=== PATIENT | male | born 1985 | race African-American/Black ===

== ENCOUNTER 2018-01-08 00:51 | Inpatient (IN) | payer BC ==
[2018-01-08 05:22] LABS: APPEARANCE,URINE CLEAR; BILIRUBIN,URINE NEGATIVE (NEGATIVE); COLOR,URINE YELLOW; GLUCOSE, URINE NEGATIVE (NEGATIVE); KETONES,URINE NEGATIVE (NEGATIVE); LEUKOCYTE ESTERASE,URINE NEGATIVE (NEGATIVE); NITRITE,URINE NEGATIVE (NEGATIVE); PROTEIN,URINE NEGATIVE (NEGATIVE); URINE SPECIFIC GRAVITY 1.006; UROBILINOGEN,URINE NEGATIVE mg/dL (<2.0)
--- NOTE | 2018-01-08 05:22 | ER Document Report ---
ED Medical Screen (RME) - General Chief Complaint: Abdominal Pain Stated Complaint: ABDOMINAL CRAMPING Time Seen by Provider: 01/08/18 04:40 Mode of Arrival: Ambulatory Information source: Patient Notes: Patient is a 32-year-old male who presents with upper abdominal/epigastric pain. Patient reports that the pain started yesterday attending him. Patient describes the pain as a tightness. Patient denies any shortness of breath however he does report that the pain increases in his abdomen when he takes a deep breath. Patient denies any fever. Patient reports heavy caffeine use as well as alcohol use. Patient also reports that he is a smoker. Patient denies any past medical history, surgical history and denies the use of any daily medications. I have greeted and performed a rapid initial assessment of this patient. A comprehensive ED assessment and evaluation of the patient, analysis of test results and completion of the medical decision making process will be conducted by additional ED providers. Dictation of this chart was performed using voice recognition software; therefore, there may be some unintended grammatical errors. Past Medical History - General Information source: Patient - Social History Cigarette use (# per day): Yes Frequency of alcohol use: Social Drug Abuse: None Lives with: Family Family history: Reviewed & Not Pertinent - Medical History Medical History: Negative Surgical Hx: Negative Review of Systems - Review of Systems Constitutional: No symptoms reported EENT: No symptoms reported Cardiovascular: No symptoms reported Respiratory: No symptoms reported Gastrointestinal: See HPI Genitourinary: No symptoms reported Male Genitourinary: No symptoms reported Musculoskeletal: No symptoms reported Skin: No symptoms reported Hematologic/Lymphatic: No symptoms reported Neurological/Psychological: No symptoms reported Physical Exam - Vital signs Vitals: Temp Pulse Resp BP Pulse Ox 98.3 F 88 17 154/101 H 97 01/08/18 01:05 01/08/18 01:05 01/08/18 01:05 01/08/18 01:05 01/08/18 01:05 - Respiratory Respiratory status: No respiratory distress Breath sounds: Normal - Abdominal Inspection: Obese Distension: No distension Bowel sounds: Normal Tenderness: Tender. No: Guarding, Rebound Organomegaly: No organomegaly Course - Vital Signs Vital signs: Temp Pulse Resp BP Pulse Ox 98.3 F 88 17 165/108 H 97 01/08/18 01:05 01/08/18 01:05 01/08/18 01:05 01/08/18 01:08 01/08/18 01:05 - Laboratory Result Diagrams: 01/08/18 04:52 01/08/18 04:52
[2018-01-08] MEDS ORDERED: SUCRALFATE 1 GM TABLET PO ONE (05:24)
[2018-01-08 05:31] LABS: ABSOLUTE EOSINOPHILS # (AUTO) 0.2 10^3/uL (0.0-0.6); ABSOLUTE MONOCYTES (AUTO) 0.7 10^3/uL (0.1-1.4); ABSOLUTE NEUT (AUTO) 9.9 10^3/uL (1.7-8.2); BASOPHILS % (AUTO) 0.2 % (0-2); EOSINOPHILS % (AUTO) 1.3 % (0-6); HEMATOCRIT 44.3 % (37.9-51.0); HEMOGLOBIN 15.1 g/dL (13.5-17.0); LYMPHOCYTES % (AUTO) 15.6 % (13-45); MEAN CORPUSCULAR HEMOGLOBIN 31.3 pg (27.0-33.4); MEAN CORPUSCULAR HGB CONC 34.1 g/dL (32.0-36.0); MEAN CORPUSCULAR VOLUME 92 fl (80-97); MONOCYTES % (AUTO) 5.6 % (3-13); PLATELET COUNT 370 10^3/uL (150-450); RED BLOOD COUNT 4.83 10^6/uL (4.35-5.55); RED CELL DISTRIBUTION WIDTH 13.4 % (11.5-14.0); SEGMENTED NEUTROPHILS % (AUTO) 77.3 % (42-78); TOTAL CELLS COUNTED % (AUTO) 100 %; WHITE BLOOD COUNT 12.8 10^3/uL (4.0-10.5)
[2018-01-08 05:49] LABS: ALANINE AMINOTRANSFERASE 37 U/L (21-72); ALKALINE PHOSPHATASE 71 U/L (38-126); ANION GAP 12 (5-19); ASPARTATE AMINO TRANSFERASE 23 U/L (17-59); BILIRUBIN,DIRECT 0.4 mg/dL (0.0-0.4); BILIRUBIN,TOTAL 0.6 mg/dL (0.2-1.3); BLOOD UREA NITROGEN 4 mg/dL (7-20); CALCIUM 9.5 mg/dL (8.4-10.2); CARBON DIOXIDE 27 mmol/L (22-30); CHLORIDE 104 mmol/L (98-107); GLUCOSE 100 mg/dL (75-110); LIPASE 71.1 U/L (23-300); POTASSIUM 3.9 mmol/L (3.6-5.0); SODIUM 142.5 mmol/L (137-145); TOTAL PROTEIN 6.9 g/dL (6.3-8.2)
--- NOTE | 2018-01-08 06:45 | ER Document Report ---
ED GI/ <THOMAS ANGLIN - Last Filed: 01/08/18 08:34> - General Mode of Arrival: Ambulatory Information source: Patient <KEVIN ROMERO - Last Filed: 01/09/18 08:09> - General Chief Complaint: Abdominal Pain Stated Complaint: ABDOMINAL CRAMPING Time Seen by Provider: 01/08/18 04:40 Notes: Patient is a 32 year old male with no significant history presents to the emergency department complaining of epigastric abdominal pain onset yesterday around 1015. Patient states after he woke up, he noticed the pain around 20 mins later and describes it as a constant tightness. He states the pain is exacerbated with deep breathing and bending over. He states approximately 6 hours after the onset of the pain he vomited once. He denies any nausea. (KEVIN ROMERO) - Related Data Allergies/Adverse Reactions: No Known Allergies Allergy (Unverified 01/08/18 09:05) Past Medical History - General Information source: Patient - Social History Smoking Status: Current Every Day Smoker Cigarette use (# per day): Yes - Half a pack a day Frequency of alcohol use: Heavy - states 36 beers a week, drinks majority on weekends. Drug Abuse: None Lives with: Family Family History: Reviewed & Not Pertinent - Medical History Medical History: Negative Surgical Hx: Negative <KEVIN ROMERO - Last Filed: 01/09/18 08:09> Review of Systems - Review of Systems Constitutional: No symptoms reported EENT: No symptoms reported Cardiovascular: No symptoms reported Respiratory: No symptoms reported Gastrointestinal: See HPI, Abdominal pain, Vomiting. denies: Nausea Genitourinary: No symptoms reported Male Genitourinary: No symptoms reported Musculoskeletal: No symptoms reported Skin: No symptoms reported Hematologic/Lymphatic: No symptoms reported Neurological/Psychological: No symptoms reported -: Yes All other systems reviewed and negative <KEVIN ROMERO - Last Filed: 01/09/18 08:09> Physical Exam - General General appearance: Appears well, Alert In distress: None - HEENT Head: Normocephalic, Atraumatic Eyes: Normal Conjunctiva: Normal Extraocular movements intact: Yes Pupils: PERRL Mucous membranes: Normal Neck: Normal - Respiratory Respiratory status: No respiratory distress Chest status: Nontender Breath sounds: Normal Chest palpation: Normal - Cardiovascular Rhythm: Regular Heart sounds: Normal auscultation Murmur: No Friction rub: No Gallop: None auscultated - Abdominal Inspection: Normal, Obese Distension: No distension Bowel sounds: Normal Tenderness: Nontender - epigastric, Tender - RUQ tender to palpation. Organomegaly: No organomegaly - Back Back: Normal - Extremities General upper extremity: Normal ROM General lower extremity: Normal ROM - Neurological Neuro grossly intact: Yes Cognition: Normal Orientation: AAOx4 Jean-Claude Coma Scale Eye Opening: Spontaneous Jean-Claude Coma Scale Verbal: Oriented Jean-Claude Coma Scale Motor: Obeys Commands Jean-Claude Coma Scale Total: 15 Speech: Normal - Psychological Associated symptoms: Normal affect, Normal mood - Skin Skin Temperature: Warm Skin Moisture: Dry Skin Color: Normal <KEVIN ROMERO - Last Filed: 01/09/18 08:09> - Vital signs Vitals: Temp Pulse Resp BP Pulse Ox 98.3 F 88 17 154/101 H 97 01/08/18 01:05 01/08/18 01:05 01/08/18 01:05 01/08/18 01:05 01/08/18 01:05 Course - Laboratory Result Diagrams: 01/08/18 04:52 01/08/18 04:52 - EKG Interpretation by [facility] EKG shows normal: Sinus rhythm, [place], Intervals, QRS Complexes, ST-T Waves Rate: Normal - 83 Rhythm: NSR - Consults Dr. Pelaez Time consulted: 07:20 Consulted provider: will come to ER <THOMAS ANGLIN - Last Filed: 01/08/18 08:34> - Laboratory Result Diagrams: 01/09/18 06:40 01/09/18 06:40 <KEVIN ROMERO - Last Filed: 01/09/18 08:09> - Vital Signs Vital signs: Temp Pulse Resp BP Pulse Ox 98.7 F 100 18 152/95 H 92 01/09/18 07:20 01/09/18 07:20 01/09/18 04:11 01/09/18 07:20 01/09/18 07:20 - Laboratory Laboratory results interpreted by or: 01/08/18 01/08/18 01/08/18 04:52 04:52 04:56 WBC 12.8 H Absolute Neutrophils 9.9 H BUN 4 L Urine Blood SMALL H Discharge - Discharge Admitting Provider: Surgicalist Unit Admitted: OR <THOMAS ANGLIN - Last Filed: 01/08/18 08:34> <KEVIN ROMERO - Last Filed: 01/09/18 08:09> - Discharge Clinical Impression: Cholelithiasis and acute cholecystitis without obstruction High blood pressure Qualifiers: Hypertension type: essential hypertension Qualified Code(s): I10 - Essential ( primary) hypertension Condition: Stable Disposition: ADMITTED INPATIENT Scribe Attestation: 01/08/18 07:25 I personally performed the services described in the documentation, reviewed and edited the documentation which was dictated to the scribe in my presence, and it accurately records my words and actions. (THOMAS ANGLIN) Scribe Documentation - Scribe Written by Dwaine:: Dwaine Ho, 01/08/2018 06:53 acting as scribe for :: Nafisa <KEVIN ROMERO - Last Filed: 01/09/18 08:09>
--- NOTE | 2018-01-08 07:47 | RADIOLOGY REPORT (SQ) ---
EXAM DESCRIPTION: US ABDOMEN LIMITED COMPLETED DATE/TME: 01/08/2018 06:37 CLINICAL HISTORY: RUQ abd pain COMPARISON: None. TECHNIQUE: Real-time sonographic images of the right upper abdomen were obtained using a curved multihertz transducer. FINDINGS: Pancreas: The visualized portions of the pancreas are unremarkable. Vascular: The visualized portions of the aorta and IVC are unremarkable. Liver: The liver has normal contour and increased echogenicity. Hepatopedal flow in the portal vein confirmed with color and spectral Doppler imaging.. The common bile duct measures 0.2 cm. Gallbladder: Mobile echogenic structure with posterior shadowing in the gallbladder lumen compatible with a gallstone. Negative reported sonographic Wilder sign. Small amount of pericholecystic fluid and mild gallbladder wall thickening. Right Kidney: The right kidney measures 11.5 cm in length. No hydronephrosis, solid renal mass, or shadowing calculi. IMPRESSION: 1. Cholelithiasis with gallbladder wall thickening and pericholecystic fluid. These findings could be seen with acute cholecystitis. 2. Hepatic steatosis.
[2018-01-08] MEDS ORDERED: NORMAL SALINE 1000 ML 2,000 ML IV PRN (08:22)
[2018-01-08] MEDS ORDERED: METOCLOPRAMIDE HCL INJ/PF 10 MG/2 ML SDV ONE (08:22)
[2018-01-08] MEDS ORDERED: ONDANSETRON HCL INJ/PF 4 MG/2 ML SDV ONE (08:22)
[2018-01-08] MEDS ORDERED: CEFOXITIN INJ 1 GM VIAL IV ONE (08:22)
[2018-01-08] MEDS ORDERED: SUCCINYLCHOLINE CHLORIDE INJ 200 MG/10 ML VIAL ONE (08:22)
[2018-01-08] MEDS ORDERED: GLYCOPYRROLATE 1 MG/5 ML SYRINGE ONE (08:22)
[2018-01-08] MEDS ORDERED: ROCURONIUM BROMIDE INJ 50 MG/5 ML VIAL IV ONE (08:22)
[2018-01-08] MEDS ORDERED: DEXAMETHASONE SOD PHOSPHATE INJ 4 MG/1 ML VIAL ONE (08:22)
[2018-01-08] MEDS ORDERED: KETOROLAC TROMETHAMINE 60 MG/2 ML SDV ONE (08:22)
[2018-01-08] MEDS ORDERED: LIDOCAINE 2% INJ-PF (20 MG/ML) 2 ML AMPUL ONE (08:22)
[2018-01-08] MEDS ORDERED: NEOSTIGMINE METHYLSULFATE 10 MG/10 ML VIAL ONE (08:22)
--- NOTE | 2018-01-08 08:23 | PDOC H&P ---
History of Present Illness Admission Date/PCP: 01/08/18 Patient complains of: RUQ pain History of Present Illness: CHI ROMEO is a 32 year old male, onese, with HTN c/o RUQ pain x 12 hours. An US of the abdomen has been done revealing cholelithiasis with cholecystitis. Nausea, no vomiting. Social History Lives with: Family Smoking Status: Current Every Day Smoker Family History Family History: n/a Parental Family History Reviewed: No Children Family History Reviewed: No Sibling(s) Family History Reviewed.: No Physical Exam Vital Signs: Temp Pulse Resp BP Pulse Ox 98.3 F 88 17 165/108 H 97 01/08/18 01:05 01/08/18 01:05 01/08/18 01:05 01/08/18 01:08 01/08/18 01:05 Intake & Output 01/07/18 01/08/18 01/09/18 06:59 06:59 06:59 Weight 148.7 kg General appearance: PRESENT: no acute distress, cooperative Head exam: PRESENT: atraumatic Mouth exam: PRESENT: dry mucosa Respiratory exam: PRESENT: clear to auscultation janeth Cardiovascular exam: PRESENT: RRR GI/Abdominal exam: PRESENT: normal bowel sounds - right upper quadrant, tenderness Rectal exam: PRESENT: deferred Neurological exam: PRESENT: alert, altered Skin exam: PRESENT: warm Results Laboratory Results: 01/08/18 04:52 01/08/18 04:52 01/08/18 01/08/18 01/08/18 04:52 04:52 04:56 WBC 12.8 H RBC 4.83 Hgb 15.1 Hct 44.3 MCV 92 MCH 31.3 MCHC 34.1 RDW 13.4 Plt Count 370 Seg Neutrophils % 77.3 Lymphocytes % 15.6 Monocytes % 5.6 Eosinophils % 1.3 Basophils % 0.2 Absolute Neutrophils 9.9 H Absolute Lymphocytes 2.0 Absolute Monocytes 0.7 Absolute Eosinophils 0.2 Absolute Basophils 0.0 Sodium 142.5 Potassium 3.9 Chloride 104 Carbon Dioxide 27 Anion Gap 12 BUN 4 L Creatinine 0.67 Est GFR ( Amer) > 60 Est GFR (Non-Af Amer) > 60 Glucose 100 Calcium 9.5 Total Bilirubin 0.6 AST 23 ALT 37 Alkaline Phosphatase 71 Total Protein 6.9 Albumin 4.0 Lipase 71.1 Urine Color YELLOW Urine Appearance CLEAR Urine pH 6.0 Ur Specific [place] 1.006 Urine Protein NEGATIVE Urine Glucose (UA) NEGATIVE Urine Ketones NEGATIVE Urine Blood SMALL H Urine Nitrite NEGATIVE Ur Leukocyte Esterase NEGATIVE Urine RBC (Auto) 1 Impressions: Abdomen Ultrasound 01/08/18 06:37 IMPRESSION: 1. Cholelithiasis with gallbladder wall thickening and pericholecystic fluid. These findings could be seen with acute cholecystitis. 2. Hepatic steatosis. Assessment & Plan - Diagnosis (1) Cholelithiasis and acute cholecystitis without obstruction Is this a current diagnosis for this admission?: Yes - Plan Summary Plan Summary: A/ RUQ abdominal pain Leukocytosis Normal LFT US GB significant for cholelithiasis and cholecystitis HTN P/ Aggressive preop IV hydration (2 L NS), then NS 150 mL/hr Mefoxin 2 gr IVPB Plan lap jesenia, possible opne, possible cholangiogram today. Procedure, risks, benefits, complications including bleeding from the liver and or injury of the bile ducts which might require transfer to a tertiary center for open repair have been discussed with the patient; his questions were answered and he decided to proceed
--- NOTE | 2018-01-08 08:31 | EKG REPORT ---
SEVERITY:- BORDERLINE ECG - SINUS RHYTHM NONSPECIFIC ST-T CHANGES- INFERIOR LEADS : Confirmed by: Shiraz Fox MD 08-Jan-2018 08:31:07
[2018-01-08] MEDS ORDERED: BUPIVACAINE HCL 0.5%-EPI 1:200000 INJ/PF 30 ML VIAL ONE (09:20)
[2018-01-08] MEDS ORDERED: FENTANYL CITRATE INJ/PF 250 MCG/5 ML AMPULE ONE (09:47)
[2018-01-08] MEDS ORDERED: PROPOFOL INJ 200 MG/20 ML VIAL IV ONE (09:48)
[2018-01-08] MEDS ORDERED: DEXMEDETOMIDINE INJ 80 MCG/20 ML VIAL IV ONE (09:48)
[2018-01-08] MEDS ORDERED: EPHEDRINE SULFATE INJ 50 MG/1 ML AMPULE ONE (09:48)
[2018-01-08] MEDS ORDERED: MIDAZOLAM 2 MG/2 ML INJ ONE (09:48)
[2018-01-08] MEDS ORDERED: ACETAMINOPHEN 1,000 MG/100 ML RTUPB IV ONE (09:48)
[2018-01-08] MEDS ORDERED: FENTANYL CITRATE INJ/PF 100 MCG/2 ML AMPUL IV PRN ×3 (11:50)
[2018-01-08] MEDS ORDERED: MEPERIDINE HCL/PF INJ 25 MG/1 ML DISP.SYRIN IV PRN (11:50)
[2018-01-08] MEDS ORDERED: PROMETHAZINE HCL INJ 25 MG/1 ML VIAL IV PRN ×2 (11:50)
[2018-01-08] MEDS ORDERED: ONDANSETRON HCL INJ/PF 4 MG/2 ML SDV IV PRN ×2 (11:50→13:46)
[2018-01-08] MEDS ORDERED: DIPHENHYDRAMINE HCL 50 MG/ML VIAL IV PRN (11:50)
--- NOTE | 2018-01-08 12:57 | Operative Report ---
Nonrecallable Operative Report DATE OF SURGERY: 01/08/18 PREOPERATIVE DIAGNOSIS: acute cholecystitis, cholelithiasis POSTOPERATIVE DIAGNOSIS: same OPERATION: laparoscopic cholecystectomy. epigastric wound exploration SURGEON: TREVOR MAURICIO 1ST TREE TRIMMER: KAMILLA MORRISSEY TISSUE REMOVED OR ALTERED: gallbladder, stones COMPLICATIONS: none ESTIMATED BLOOD LOSS: 70mL INTRAOPERATIVE FINDINGS: inflamed gallbladder filled with stones PROCEDURE: see dictation
[2018-01-08] MEDS: HYDROMORPHONE HCL INJ/PF 2 MG/ML AMPULE IV PRN ×3 (13:20→20:01)
[2018-01-08] MEDS ORDERED: HYDROMORPHONE HCL INJ/PF 2 MG/ML AMPULE ONE (13:47)
[2018-01-08] MEDS: CEFOXITIN SODIUM 2 GM in DEXTROSE 5%-WATER 100 ML IV SCH ×2 (17:50→23:41)
[2018-01-08 18:21] LABS: ABSOLUTE BASOPHILS # (AUTO) 0.1 10^3/uL (0.0-0.2); ABSOLUTE LYMPHOCYTES (AUTO) 1.1 10^3/uL (0.5-4.7); ABSOLUTE MONOCYTES (AUTO) 0.8 10^3/uL (0.1-1.4); ABSOLUTE NEUT (AUTO) 17.2 10^3/uL (1.7-8.2); BASOPHILS % (AUTO) 0.3 % (0-2); EOSINOPHILS % (AUTO) 0.1 % (0-6); HEMATOCRIT 45.5 % (37.9-51.0); HEMOGLOBIN 14.6 g/dL (13.5-17.0); MEAN CORPUSCULAR VOLUME 94 fl (80-97); RED BLOOD COUNT 4.85 10^6/uL (4.35-5.55); RED CELL DISTRIBUTION WIDTH 13.3 % (11.5-14.0); SEGMENTED NEUTROPHILS % (AUTO) 89.6 % (42-78); TOTAL CELLS COUNTED % (AUTO) 100 %; WHITE BLOOD COUNT 19.1 10^3/uL (4.0-10.5)
[2018-01-08 18:29] LABS: INTERNATIONAL RATION (INR) 0.93; PROTHROMBIN TIME 12.9 SEC (11.4-15.4)
[2018-01-08 18:30] LABS: PARTIAL THROMBOPLASTIN TIME 34.2 SEC (23.5-35.8)
[2018-01-08 18:38] LABS: PLATELET COUNT 276 10^3/uL (150-450)
[2018-01-08] MEDS: FAMOTIDINE INJ/PF 20 MG/2 ML SDV IV SCH (22:50)
[2018-01-08] MEDS: NORMAL SALINE 1000 ML 1,000 ML IV PRN (23:41)
[2018-01-09] MEDS: METOPROLOL TARTRATE PF/INJ 5 MG/5 ML SDV IV SCH ×3 (00:18→12:41)
[2018-01-09] MEDS: HYDROMORPHONE HCL INJ/PF 2 MG/ML AMPULE IV PRN ×2 (04:28→08:04)
--- NOTE | 2018-01-09 04:55 | OPERATIVE REPORT E ---
Operative Report NAME: CHI ROMEO : 1985 AGE: 32Y DATE OF SURGERY:01/08/2018 ROOM: 213 PREOPERATIVE DIAGNOSIS: ACUTE CHOLECYSTITIS AND CHOLELITHIASIS. POSTOPERATIVE DIAGNOSIS: ACUTE CHOLECYSTITIS AND CHOLELITHIASIS. OPERATION: Laparoscopic cholecystectomy and wound exploration. SURGEON: TREVOR MAURICIO M.D. MILITARY LOGISTICS SPECIALIST: Paulette Palacios. COMPLICATIONS: None. ANESTHESIA: General plus 40 mL 1% lidocaine with epinephrine. ESTIMATED BLOOD LOSS: Minimal, less than 70 mL. INDICATION AND FINDINGS: A morbidly obese 32-year-old male, who presented to the emergency room this morning with complaint of right upper quadrant pain and intense nausea, found to have acute cholecystitis and cholelithiasis. The decision was made to take the patient to surgery today following IV sedation and IV antibiotics and perform laparoscopic cholecystectomy, possible open, possible cholangiogram. The procedure risks, benefits, and complications explained to the patient, including possibility of injury to common bile duct or liver, which may require transfer to a tertiary center. DESCRIPTION OF PROCEDURE: The patient was brought to the operating room. The patient was placed in the supine position. General anesthesia was induced by endotracheal intubation. The abdomen was prepped and draped in the usual fashion. Four ports were placed; one 5 mm above the umbilicus, pneumoperitoneum was established and then two 5 mm ports were placed in the right upper quadrant of the abdomen and a 12 mm port was placed in the epigastrium. The patient was then placed in a reverse Trendelenburg position with the right side elevated. The gallbladder was thickened and a needle was inserted into the gallbladder and about 40 mL of fluid were aspirated. The gallbladder was then grasped at the level of the fundus, elevated, retroflexed. The neck was then grasped and pulled anterior toward the patient's right. The gallbladder was found to be very thick and swollen and edematous, difficult to expose. The critical view of safety was obtained by dividing the peritoneal attachments of the gallbladder medially and laterally to the cystic duct and cystic neck followed by complete dissection of the cystic duct. The cystic duct was found to be very dilated because of the presence of stones. Once the critical view of safety was obtained, a laparoscopic stapler was then used to divide the gallbladder at the level of the neck and most of the stones were then taken together with the gallbladder. After this was accomplished, the gallbladder was then dissected off the bed and extracted from the peritoneal cavity with an EndoBag. The gallbladder neck was then examined and found to be filled with stone. The neck was then opened with a hook cautery and a large stone which measured about 2 cm in diameter was extracted. After this was accomplished, the stump was amputated with an endoscopic stapler and the staple line was found to be intact. The gallbladder neck stump was then removed from the peritoneal cavity through the epigastric ports; however, the specimen remained incorporated between the soft tissue layers. At this point, the epigastric skin incision was enlarged together with the fascial incision so that a wound exploration of the epigastrium could be performed. The specimen was identified in between the anterior sheath and rectus muscle and removed in toto. The anterior rectus sheath was closed with interrupted [id number] 0 Vicryl sutures. Skin was then irrigated, closed with tapan. A 10 mm. flat KATIE drain was then placed under the liver, extracted through the right upper quadrant port site and secured to the skin with a 3-0 nylon suture. The skin incisions were closed with 4-0 subcuticular suture with Dermabond and a pressure dressing applied. The patient was then extubated, transferred to the recovery room in satisfactory condition. During the procedure, about 40 mL of 1% lidocaine were used to infiltrate all wounds. DICTATING PHYSICIAN: TREVOR MAURICIO M.D. [id number] PHY#: [id number] ID: [id number] JOB#: [id number] ACCT: [id number] cc:TREVOR MAURICIO M.D. > MTDD
[2018-01-09] MEDS: CEFOXITIN SODIUM 2 GM in DEXTROSE 5%-WATER 100 ML IV SCH ×3 (05:09→17:12)
[2018-01-09 06:54] LABS: HEMATOCRIT 41.5 % (37.9-51.0); HEMOGLOBIN 14.1 g/dL (13.5-17.0); MEAN CORPUSCULAR HEMOGLOBIN 31.4 pg (27.0-33.4); MEAN CORPUSCULAR VOLUME 92 fl (80-97); PLATELET COUNT 310 10^3/uL (150-450); RED BLOOD COUNT 4.49 10^6/uL (4.35-5.55); RED CELL DISTRIBUTION WIDTH 13.3 % (11.5-14.0); WHITE BLOOD COUNT 13.9 10^3/uL (4.0-10.5)
[2018-01-09 07:09] LABS: ALANINE AMINOTRANSFERASE 40 U/L (21-72); ALBUMIN 3.5 g/dL (3.5-5.0); ALKALINE PHOSPHATASE 59 U/L (38-126); ANION GAP 9 (5-19); ASPARTATE AMINO TRANSFERASE 33 U/L (17-59); BILIRUBIN,DIRECT 0.6 mg/dL (0.0-0.4); BILIRUBIN,TOTAL 1.4 mg/dL (0.2-1.3); BLOOD UREA NITROGEN 5 mg/dL (7-20); CARBON DIOXIDE 26 mmol/L (22-30); CHLORIDE 107 mmol/L (98-107); GLUCOSE 97 mg/dL (75-110); SODIUM 141.8 mmol/L (137-145); TOTAL PROTEIN 6.3 g/dL (6.3-8.2)
[2018-01-09] MEDS: NORMAL SALINE 1000 ML 1,000 ML IV PRN (08:35)
[2018-01-09 08:40] LABS: APPEARANCE,URINE CLEAR; BILIRUBIN,URINE NEGATIVE (NEGATIVE); COLOR,URINE YELLOW; GLUCOSE, URINE NEGATIVE (NEGATIVE); KETONES,URINE NEGATIVE (NEGATIVE); LEUKOCYTE ESTERASE,URINE NEGATIVE (NEGATIVE); NITRITE,URINE NEGATIVE (NEGATIVE); PROTEIN,URINE NEGATIVE (NEGATIVE); URINE SPECIFIC GRAVITY 1.019; UROBILINOGEN,URINE NEGATIVE mg/dL (<2.0)
[2018-01-09] MEDS ORDERED: ENOXAPARIN SODIUM INJ 40 MG/0.4 ML DISP.SYRIN SUBCUT SCH (10:00)
[2018-01-09] MEDS ORDERED: AMLODIPINE BESYLATE 5 MG TABLET PO SCH (10:00)
[2018-01-09] MEDS: FAMOTIDINE INJ/PF 20 MG/2 ML SDV IV SCH (11:30)
[2018-01-09] MEDS ORDERED: ACETAMINOPHEN 325 MG TABLET PO PRN (16:14)
[2018-01-09] MEDS ORDERED: NORMAL SALINE 1000 ML 1,000 ML IV PRN (16:15)
[2018-01-09] MEDS ORDERED: NAPROXEN 250 MG TABLET PO PRN (16:15)
--- NOTE | 2018-01-09 16:21 | PDOC PROGRESS REPORT ---
Subjective Progress Note for:: 01/09/18 Subjective:: comfortable but sleepy Reason For Visit: CHOLELITHIASIS WITH ACUTE CHOLECYSTITIS Physical Exam Vital Signs: Temp Pulse Resp BP Pulse Ox 98.8 F 89 15 150/97 H 96 01/09/18 11:52 01/09/18 11:52 01/09/18 11:52 01/09/18 11:52 01/09/18 11:52 Intake & Output 01/08/18 01/09/18 01/10/18 06:59 06:59 06:59 Intake Total 3300 Output Total 1270 Balance 2030 Weight 148 kg General appearance: PRESENT: no acute distress, cooperative, other - slepy but arousable Respiratory exam: PRESENT: clear to auscultation janeth Cardiovascular exam: PRESENT: RRR GI/Abdominal exam: PRESENT: hypoactive bowel sounds, soft, other - obese, all wounds are c/d/i Results Laboratory Results: 01/09/18 06:40 01/09/18 06:40 01/08/18 01/08/18 01/09/18 18:10 18:10 06:40 WBC 19.1 H 13.9 H RBC 4.85 4.49 Hgb 14.6 14.1 Hct 45.5 41.5 MCV 94 92 MCH 30.0 31.4 MCHC 32.0 34.0 RDW 13.3 13.3 Plt Count 276 310 Seg Neutrophils % 89.6 H Lymphocytes % 6.0 L Monocytes % 4.0 Eosinophils % 0.1 Basophils % 0.3 Absolute Neutrophils 17.2 H Absolute Lymphocytes 1.1 Absolute Monocytes 0.8 Absolute Eosinophils 0.0 Absolute Basophils 0.1 Sodium Potassium Chloride Carbon Dioxide Anion Gap BUN Creatinine 0.83 Est GFR ( Amer) > 60 Est GFR (Non-Af Amer) > 60 Glucose Calcium Total Bilirubin AST ALT Alkaline Phosphatase Total Protein Albumin Urine Color Urine Appearance Urine pH Ur Specific [place] Urine Protein Urine Glucose (UA) Urine Ketones Urine Blood Urine Nitrite Ur Leukocyte Esterase Urine WBC (Auto) Urine RBC (Auto) Stool Occult Blood 01/09/18 01/09/18 01/09/18 06:40 07:55 15:45 WBC RBC Hgb Hct MCV MCH MCHC RDW Plt Count Seg Neutrophils % Lymphocytes % Monocytes % Eosinophils % Basophils % Absolute Neutrophils Absolute Lymphocytes Absolute Monocytes Absolute Eosinophils Absolute Basophils Sodium 141.8 Potassium 4.0 Chloride 107 Carbon Dioxide 26 Anion Gap 9 BUN 5 L Creatinine 0.73 Est GFR ( Amer) > 60 Est GFR (Non-Af Amer) > 60 Glucose 97 Calcium 9.0 Total Bilirubin 1.4 H AST 33 ALT 40 Alkaline Phosphatase 59 Total Protein 6.3 Albumin 3.5 Urine Color YELLOW Urine Appearance CLEAR Urine pH 6.0 Ur Specific [place] 1.019 Urine Protein NEGATIVE Urine Glucose (UA) NEGATIVE Urine Ketones NEGATIVE Urine Blood NEGATIVE Urine Nitrite NEGATIVE Ur Leukocyte Esterase NEGATIVE Urine WBC (Auto) 2 Urine RBC (Auto) 3 Stool Occult Blood NEGATIVE Impressions: Abdomen Ultrasound 01/08/18 06:37 IMPRESSION: 1. Cholelithiasis with gallbladder wall thickening and pericholecystic fluid. These findings could be seen with acute cholecystitis. 2. Hepatic steatosis. Assessment & Plan - Diagnosis (1) Cholelithiasis and acute cholecystitis without obstruction Is this a current diagnosis for this admission?: Yes - Plan Summary Plan Summary: A/ POD #1 after lap jesenia for acute jesenia with stones VSS, AF WBC 12 LFT show slight elevation of total bili (1.4), otherwise normal KATIE output 190, mostly irrigation fluid, serosanguinous P/ Decrease IVF Stop narcotics Oral Tylenol and Aleve oral pepcid Home tomorrow
--- NOTE | 2018-01-09 18:40 | CONSULTATION REPORT E ---
Consultation Report NAME: CHI ROMEO : 1985 AGE: 32Y DATE: 01/09/2018 213 B TO: RIKCEY LAKE NP FROM: Surgicalist Service Requesting Physician CODE STATUS: FULL CODE. PRIMARY CARE PROVIDER: Not established. CONSULTING PROVIDER: Surgicalist. REASON FOR CONSULTATION: Hypertensive management in a patient in postoperative state. HISTORY OF PRESENT ILLNESS: The patient is a 32-year-old -[place] male with no significant past medical history. The patient presented to the emergency department with a chief complaint of abdominal pain. The patient developed a sudden onset of epigastric abdominal pain about a day prior to presentation. The patient stated that he was awakened and the pain gradually increased, described as tightness in the area. The patient's pain was exacerbated by deep breathing, bending over. The patient stated that he vomited about 6 hours after the pain started. The patient felt that the pain was becoming unbearable, and therefore presented to the emergency department. The patient's ultrasound was suggestive of cholelithiasis and acute cholecystitis without obstruction. The patient was seen and evaluated by the surgicalist, and was taken to the OR on 01/08/[address] Pelaez. The patient is currently postoperative. The patient is noted to be hypertensive since presentation. The patient has not had a normal blood pressure. They have all been hypertensive, ranging from the 140s to 160s systolically. The patient denies any history of hypertension; however, he is uncertain of what his blood pressure has been running. The patient, who does have morbid obesity with a BMI of 45%, does most likely have hypertension at baseline that has been undiagnosed. The patient appears to be hypertensive even while being awakened from sleep, and the patient has been referred to the hospitalist for consult. PAST MEDICAL HISTORY: Morbid obesity. PAST SURGICAL HISTORY: Recent cholecystectomy. ALLERGIES: No known drug allergies. HOME MEDICATIONS: None. SOCIAL HISTORY: The patient currently resides at home with his family. The patient is employed at [employer] and is a daily smoker. The patient denies any alcohol use or illicit drug use. FAMILY MEDICAL HISTORY: Positive for hypertension in multiple family members. Both of the patient's parents are healthy. The patient does not have children. The patient does have siblings who are healthy. REVIEW OF SYSTEMS: CONSTITUTIONAL: The patient denies any dizziness, weakness. Does admit to loss of appetite and sensations of fevers, chills. SKIN: The patient denies any diaphoresis, rashes, bruising, itching. HEENT: Denies any visual changes, hearing loss, nasal changes, sore throat. CVS: The patient denies any chest pain. No edema, heart palpitations. RESPIRATORY: Denies any cough, sputum production or hemoptysis. GI: Denies any diarrhea. Admits to nausea. Episode of vomiting, as well as abdominal pain. : Denies any hematuria, pyuria or dysuria. MUSCULOSKELETAL: Denies any acute or chronic joint pains. NEUROLOGICAL: No seizures, tremors, loss of consciousness. HEMATOLOGICAL: Denies any sandra bleeding, easy bruising. ENDOCRINE: Denies any recent weight changes. PSYCHIATRIC: Denies any suicidal or homicidal ideation. PHYSICAL EXAMINATION: GENERAL: On examination, the patient is a well-developed, obese 32-year-old -[place] male, who is awake, alert and oriented to person, place, time and situation. He is verbal, conversational. Does not appear to be in distress. VITAL SIGNS: Temperature is 98, pulse 100, respirations 18, blood pressure 146/87, oxygen saturation 96% on room air. SKIN: Warm. HEENT: The patient's pupils are reactive. There is no evidence of JVP. No periorbital edema. CHEST: Symmetrical, unlabored. ABDOMEN: Obese, postsurgical. EXTREMITIES: No edema. PSYCHIATRIC: Appropriate affect, pleasant mood. DIAGNOSTICS: Lab values are as follows: Hematology obtained on 01/09/2018: WBCs are 13.9, hemoglobin is 14.1, hematocrit is 41.5, platelet count of 310,000. Chemistry obtained on 01/09/2018: Sodium is 141, potassium 4.0, chloride is 107, carbon dioxide 26, BUN 5, creatinine 0.73, glucose 97, calcium is 9.0, bilirubin is 1.4. AST 33, ALT is 40, alk phos 59, total protein 6.3, albumin 3.5. IMPRESSION AND PLAN: 1. Hypertension, most likely benign, essential. The patient most likely is hypertensive at baseline. Will start the patient on a dose of Norvasc for now, and monitor to see how the patient tolerates it. Some of this elevation most likely is due to a pain response; therefore, will attempt not to over-treat, and follow. 2. Morbid obesity. Would encourage weight reduction. 3. Postoperative state. Management as per surgicalist. DISPOSITION: The patient is a FULL CODE. The patient can be discharged by the surgicalist team whenever the patient is ready, from their standpoint. This hypertension should not keep the patient in the hospital. Time spent on this followup, including assessment, plan, physical examination, patient education and review of records, is 35 minutes. DICTATING PHYSICIAN: RICKEY LAKE NP [id number] PHY#: [id number] ID: [id number] JOB#: [id number] ACCT: [id number] cc:RICKEY LAKE NP > MTDD
[2018-01-09] MEDS: FAMOTIDINE 20 MG TABLET PO SCH (22:39)
[2018-01-10] MEDS: CEFOXITIN SODIUM 2 GM in DEXTROSE 5%-WATER 100 ML IV SCH ×2 (00:36→06:13)
[2018-01-10] MEDS ORDERED: METOPROLOL TARTRATE 50 MG TABLET PO ONE (04:00)
[2018-01-10] MEDS ORDERED: AMLODIPINE BESYLATE 5 MG TABLET PO SCH (08:23)
[2018-01-10 08:47] LABS: ABSOLUTE BASOPHILS # (AUTO) 0.1 10^3/uL (0.0-0.2); ABSOLUTE EOSINOPHILS # (AUTO) 0.2 10^3/uL (0.0-0.6); ABSOLUTE LYMPHOCYTES (AUTO) 1.4 10^3/uL (0.5-4.7); ABSOLUTE MONOCYTES (AUTO) 0.9 10^3/uL (0.1-1.4); ABSOLUTE NEUT (AUTO) 9.5 10^3/uL (1.7-8.2); BASOPHILS % (AUTO) 0.5 % (0-2); EOSINOPHILS % (AUTO) 1.5 % (0-6); HEMATOCRIT 40.4 % (37.9-51.0); HEMOGLOBIN 13.8 g/dL (13.5-17.0); LYMPHOCYTES % (AUTO) 11.4 % (13-45); MEAN CORPUSCULAR HEMOGLOBIN 31.4 pg (27.0-33.4); MEAN CORPUSCULAR VOLUME 92 fl (80-97); MONOCYTES % (AUTO) 7.8 % (3-13); PLATELET COUNT 331 10^3/uL (150-450); RED BLOOD COUNT 4.38 10^6/uL (4.35-5.55); RED CELL DISTRIBUTION WIDTH 13.1 % (11.5-14.0); SEGMENTED NEUTROPHILS % (AUTO) 78.8 % (42-78); TOTAL CELLS COUNTED % (AUTO) 100 %; WHITE BLOOD COUNT 12.1 10^3/uL (4.0-10.5)
[2018-01-10 09:00] LABS: ALANINE AMINOTRANSFERASE 41 U/L (21-72); ALBUMIN 3.6 g/dL (3.5-5.0); ALKALINE PHOSPHATASE 66 U/L (38-126); ANION GAP 11 (5-19); ASPARTATE AMINO TRANSFERASE 22 U/L (17-59); BILIRUBIN,DIRECT 0.4 mg/dL (0.0-0.4); BILIRUBIN,TOTAL 1.2 mg/dL (0.2-1.3); BLOOD UREA NITROGEN 7 mg/dL (7-20); CALCIUM 9.3 mg/dL (8.4-10.2); CARBON DIOXIDE 27 mmol/L (22-30); CHLORIDE 104 mmol/L (98-107); GLUCOSE 93 mg/dL (75-110); POTASSIUM 3.7 mmol/L (3.6-5.0); SODIUM 141.5 mmol/L (137-145); TOTAL PROTEIN 6.4 g/dL (6.3-8.2)
--- NOTE | 2018-01-10 09:17 | PDOC PROGRESS REPORT ---
Subjective Progress Note for:: 01/10/18 Subjective:: Patient is seen resting in bed. His sister is at the bedside. He denies any chest pain, shortness of breath or dyspnea. He denies any nausea or vomiting. He is having intermittent abdominal pain relieved by pain medication. He states he is passing gas. He denies any significant arthralgias or myalgias. Remaining review of systems are negative. Reason For Visit: CHOLELITHIASIS WITH ACUTE CHOLECYSTITIS Physical Exam Vital Signs: Temp Pulse Resp BP Pulse Ox 98.7 F 108 H 20 138/92 H 95 01/10/18 03:19 01/10/18 03:31 01/10/18 03:19 01/10/18 06:10 01/10/18 03:19 Intake & Output 01/09/18 01/10/18 01/11/18 06:59 06:59 06:59 Intake Total 3300 1020 Output Total 1270 20 12 Balance 2030 1000 -12 Weight 146.9 kg General appearance: PRESENT: no acute distress, morbidly obese, well-developed, well-nourished Head exam: PRESENT: atraumatic, normocephalic Eye exam: PRESENT: conjunctiva pink, EOMI, PERRLA. ABSENT: scleral icterus Ear exam: PRESENT: normal external ear exam Mouth exam: PRESENT: moist, tongue midline Neck exam: ABSENT: carotid bruit, JVD, lymphadenopathy, thyromegaly Respiratory exam: PRESENT: clear to auscultation janeth. ABSENT: rales, rhonchi, wheezes Cardiovascular exam: PRESENT: RRR. ABSENT: diastolic murmur, rubs, systolic murmur Pulses: PRESENT: normal dorsalis pedis pul Vascular exam: PRESENT: normal capillary refill GI/Abdominal exam: PRESENT: hyperactive bowel sounds, soft, tenderness - Incision site Rectal exam: PRESENT: deferred Extremities exam: PRESENT: full ROM. ABSENT: calf tenderness, clubbing, pedal edema Musculoskeletal exam: PRESENT: ambulatory, full ROM Neurological exam: PRESENT: alert, awake, oriented to person, oriented to place , oriented to time, oriented to situation, CN II-XII grossly intact. ABSENT: motor sensory deficit Psychiatric exam: PRESENT: appropriate affect, normal mood. ABSENT: homicidal ideation, suicidal ideation Skin exam: PRESENT: dry, intact, warm. ABSENT: cyanosis, rash Results Laboratory Results: 01/10/18 08:31 01/10/18 08:31 18 18 01/10/18 15:45 08:31 08:31 WBC 12.1 H RBC 4.38 Hgb 13.8 Hct 40.4 MCV 92 MCH 31.4 MCHC 34.0 RDW 13.1 Plt Count 331 Seg Neutrophils % 78.8 H Lymphocytes % 11.4 L Monocytes % 7.8 Eosinophils % 1.5 Basophils % 0.5 Absolute Neutrophils 9.5 H Absolute Lymphocytes 1.4 Absolute Monocytes 0.9 Absolute Eosinophils 0.2 Absolute Basophils 0.1 Sodium 141.5 Potassium 3.7 Chloride 104 Carbon Dioxide 27 Anion Gap 11 BUN 7 Creatinine 0.84 Est GFR ( Amer) > 60 Est GFR (Non-Af Amer) > 60 Glucose 93 Calcium 9.3 Total Bilirubin 1.2 AST 22 ALT 41 Alkaline Phosphatase 66 Total Protein 6.4 Albumin 3.6 Stool Occult Blood NEGATIVE Impressions: Abdomen Ultrasound 01/08/18 06:37 IMPRESSION: 1. Cholelithiasis with gallbladder wall thickening and pericholecystic fluid. These findings could be seen with acute cholecystitis. 2. Hepatic steatosis. Assessment & Plan - Diagnosis (1) Cholelithiasis and acute cholecystitis without obstruction Is this a current diagnosis for this admission?: Yes Plan: Management per surgery. (2) Hypertension Qualifiers: Hypertension type: essential hypertension Qualified Code(s): I10 - Essential (primary) hypertension Is this a current diagnosis for this admission?: Yes Plan: Will increase Norvasc to 10 mg daily. Discontinue metoprolol due to side effects and his young age reinforced he needs to follow-up with primary care provider. His sister is at bedside she is a nurse and she will make sure he does so. Discussed watching salt and processed food intake as well (3) Morbid obesity with BMI of 45.0-49.9, adult Is this a current diagnosis for this admission?: Yes Plan: Reinforced need for weight loss. Discussed portion control, reducing soda and snacks - Time Time Spent with patient: 25-34 minutes Total Critical Time (Minutes): 15 Medications reviewed and adjusted accordingly: Yes Anticipated discharge: Home
--- NOTE | 2018-01-10 09:23 | PDOC PROGRESS REPORT ---
Subjective Progress Note for:: 01/10/18 Subjective:: comfortable, tolerating po well Reason For Visit: CHOLELITHIASIS WITH ACUTE CHOLECYSTITIS Physical Exam Vital Signs: Temp Pulse Resp BP Pulse Ox 98.6 F 86 18 130/94 H 96 01/10/18 08:56 01/10/18 08:56 01/10/18 08:56 01/10/18 08:56 01/10/18 08:56 Intake & Output 01/09/18 01/10/18 01/11/18 06:59 06:59 06:59 Intake Total 3300 1020 Output Total 1270 20 12 Balance 2029 1000 -12 Weight 146.9 kg General appearance: PRESENT: no acute distress, cooperative Respiratory exam: PRESENT: clear to auscultation janeth Cardiovascular exam: PRESENT: RRR GI/Abdominal exam: PRESENT: soft, other - all incisions are c/d/i; KATIE drain in RUQ with serosanginous fluid Results Laboratory Results: 01/10/18 08:31 01/10/18 08:31 01/09/18 01/10/18 01/10/18 15:45 08:31 08:31 WBC 12.1 H RBC 4.38 Hgb 13.8 Hct 40.4 MCV 92 MCH 31.4 MCHC 34.0 RDW 13.1 Plt Count 331 Seg Neutrophils % 78.8 H Lymphocytes % 11.4 L Monocytes % 7.8 Eosinophils % 1.5 Basophils % 0.5 Absolute Neutrophils 9.5 H Absolute Lymphocytes 1.4 Absolute Monocytes 0.9 Absolute Eosinophils 0.2 Absolute Basophils 0.1 Sodium 141.5 Potassium 3.7 Chloride 104 Carbon Dioxide 27 Anion Gap 11 BUN 7 Creatinine 0.84 Est GFR ( Amer) > 60 Est GFR (Non-Af Amer) > 60 Glucose 93 Calcium 9.3 Total Bilirubin 1.2 AST 22 ALT 41 Alkaline Phosphatase 66 Total Protein 6.4 Albumin 3.6 Stool Occult Blood NEGATIVE Impressions: Abdomen Ultrasound 01/08/18 06:37 IMPRESSION: 1. Cholelithiasis with gallbladder wall thickening and pericholecystic fluid. These findings could be seen with acute cholecystitis. 2. Hepatic steatosis. Assessment & Plan - Diagnosis (1) Cholelithiasis and acute cholecystitis without obstruction Is this a current diagnosis for this admission?: Yes - Plan Summary Plan Summary: A/ POD#2 after lap jesenia VSS, AF WBC 12 LFT WNL Abdomen soft KATIE output decreased 20 mL P/ Home today F/U Surgery Clinic Dian NOLASCO within 1 week resume all activities Regular diet, low akil (limit to 1500/200 akil day) Sponge bath only until KATIE drain is in place, afterwards patient can shower, bath in 2 weeks after surgery Empty KATIE drain daily, record amount and bring output record to office clinic Tylenol/Aleve as needed for pain Augmentin 875 mg po BID x 7 days Take all other meds
[2018-01-10 09:36] VITALS: BP 138/92
[2018-01-10] MEDS: FAMOTIDINE 20 MG TABLET PO SCH (09:52)
[2018-01-10] MEDS ORDERED: METOPROLOL TARTRATE 50 MG TABLET PO SCH (10:00)
--- NOTE | 2018-01-11 08:40 | DISCHARGE SUMMARY E ---
Discharge Summary NAME: CHI ROMEO : 1985 AGE: 32Y ADMITTED: 01/08/2018 DISCHARGED: 01/10/2018 FINAL DIAGNOSIS: 1. Acute cholecystitis with cholelithiasis. 2. Hypertension. 3. Morbid obesity. PROCEDURE: On 01/08, the patient underwent laparoscopic cholecystectomy. COMPLICATIONS: None. HOSPITAL COURSE: The patient is a 32-year-old male who presents to hospital with right upper quadrant pain. The patient was taken to surgery on the same day, 01/08 and underwent an uneventful laparoscopic cholecystectomy which demonstrated severe acute cholecystitis. The drain was left in place. His postop course was unremarkable. His vital signs remained stable. Blood work was monitored daily. His white blood cell count on the day of discharge was 12. His liver profile was within normal limits. On physical exam, the abdomen was soft. The incision was clean, dry and intact. The patient had a drain, which was draining serosanguineous fluid about 20 mL on the day of discharge. DISCHARGE ORDERS: The patient was discharged on 01/10/18 and was given followup appointment with the Surgical Clinic with Dian Dumont, within a week. He was given instructions to sponge bath only until the drain is in place. The patient was instructed to empty the Regino-Fay drain once a day, to record the output and bring the output record to clinic. Augmentin 875 mg p.o. b.i.d. for 7 days, Tylenol and Aleve as needed for pain. Regular diet limited to about 2000 calories a day. Norvasc 2 mg p.o. daily as prescribed by hospitalist for the patient's hypertension. DICTATING PHYSICIAN: TREVOR MAURICIO M.D. [id number] PHY#: [id number] ID: [id number] JOB#: [id number] ACCT: [id number] cc:La ROMERO M.D. > MTDD
== END 2018-01-10 10:00 | disposition home or self-care (01) | DRG 418 ==
LOC: ER 00:51 → EH 08:48 → 2N 14:50
PROVIDERS: ADMIT Surgery; ATTEND Surgery
PROC: 0FT44ZZ Resection of Gallbladder, Percutaneous Endoscopic Approach (ICD-10-PCS; principal; 2018-01-08 10:00)
DX: K80.00 Calculus of gallbladder with acute cholecystitis without obstruction (principal); Z68.42 Body mass index [BMI] 45.0-49.9, adult; I10 Essential (primary) hypertension; E66.01 Morbid (severe) obesity due to excess calories; F17.210 Nicotine dependence, cigarettes, uncomplicated
CPT/HCPCS: 36415; 76705; 790; 80053; 81001; 82272; 82565; 83690; 85025; 85027; 85610; 85730; 87040; 87070; 87075; 87205; 88304; 93005; 93010; 94799; 99285; J0131; J0330; J0694; J1100; J1170; J1650; J1885; J2250; J2405; J2704; J2765; J3010; J3490; J7030; S0028

== ENCOUNTER 2019-01-20 02:05 | Emergency (ER) | payer BC ==
[2019-01-20] MEDS ORDERED: SUCRALFATE 1 GM TABLET PO ONE (03:22)
[2019-01-20] MEDS ORDERED: FAMOTIDINE 20 MG TABLET PO ONE (03:22)
[2019-01-20] MEDS ORDERED: ONDANSETRON 4 MG TAB.RAPDIS PO ONE (03:22)
--- NOTE | 2019-01-20 03:24 | ER Document Report ---
ED GI/ - General Chief Complaint: Epigastric Pain Stated Complaint: STOMACH PAIN Time Seen by Provider: 01/20/19 03:16 Notes: Patient is a 33-year-old male that comes to the emergency department for chief complaint of epigastric pain. Pain started yesterday morning, then again this morning, he reports nausea intermittently as well. He also started to notice pain with moving in the same area. He denies vomiting, fever/chills, abnormal bowel movements. He has had a cholecystectomy already. He denies any daily medications or diagnosed medical problems otherwise. He states he does smoke, drinks alcohol but not as much as he used to, denies recreational drugs. TRAVEL OUTSIDE OF THE [place] IN LAST 30 DAYS: No - Related Data Allergies/Adverse Reactions: No Known Allergies Allergy (Unverified 01/08/18 09:05) Past Medical History - General Information source: Patient - Social History Smoking Status: Current Every Day Smoker Chew tobacco use (# tins/day): No Smoking Education Provided: Yes - <3 min Frequency of alcohol use: Rare Drug Abuse: None Lives with: Family Family History: Reviewed & Not Pertinent Patient has suicidal ideation: No Patient has homicidal ideation: No - Past Medical History Cardiac Medical History: Reports: Hx Hypertension Renal/ Medical History: Denies: Hx Peritoneal Dialysis Past Surgical History: Reports: Hx Cholecystectomy - Immunizations Immunizations up to date: Yes Hx Diphtheria, Pertussis, Tetanus Vaccination: Yes Review of Systems - Review of Systems Constitutional: No symptoms reported EENT: No symptoms reported Cardiovascular: No symptoms reported Respiratory: No symptoms reported Gastrointestinal: See HPI Genitourinary: No symptoms reported Male Genitourinary: No symptoms reported Musculoskeletal: No symptoms reported Skin: No symptoms reported Hematologic/Lymphatic: No symptoms reported Neurological/Psychological: No symptoms reported Physical Exam - Vital signs Vitals: Temp Pulse Resp BP Pulse Ox 98.5 F 93 20 166/96 H 97 01/20/19 02:18 01/20/19 02:18 01/20/19 02:18 01/20/19 02:18 01/20/19 02:18 - Notes Notes: GENERAL: Alert, interacts well. No acute distress. HEAD: Normocephalic, atraumatic. EYES: Pupils equal, round, and reactive to light. Extraocular movements intact. ENT: Oral mucosa moist, tongue midline. Oropharynx unremarkable. Airway patent. NECK: Full range of motion. Supple. Trachea midline. LUNGS: Clear to auscultation bilaterally, no wheezes, rales, or rhonchi. No respiratory distress. HEART: Regular rate and rhythm. No murmur ABDOMEN: Minimal epigastric tenderness, soft benign abdomen otherwise. non- distended. Bowel sounds present in all 4 quadrants. GENITOURINARY: Deferred EXTREMITIES: Moves all 4 extremities spontaneously. No edema, normal radial and dorsalis pedis pulses bilaterally. No cyanosis. BACK: no cervical, thoracic, lumbar midline tenderness. No saddle anesthesia, normal distal neurovascular exam. Moves all extremities in full range of motion. NEUROLOGICAL: Alert and oriented x3. Normal speech. Cranial nerves II through XII grossly intact. PSYCH: Normal affect, normal mood. SKIN: Warm, dry, normal turgor. No rashes or lesions noted. Course - Re-evaluation Re-evalutation: CBC, chemistry, lipase unremarkable. Patient has had a cholecystectomy. He has mild epigastric tenderness. He has multiple reasons for reflux and upper abdominal inflammation (he smokes, drinks alcohol occasionally, states he recently started taking naproxen, frequently eats spicy food, etc.). Discussed work-up, recommendations, follow-up, and return precautions. Patient states satisfaction agreement with plan. - Vital Signs Vital signs: Temp Pulse Resp BP Pulse Ox 98.0 F 97 18 160/95 H 99 01/20/19 05:20 01/20/19 05:20 01/20/19 05:20 01/20/19 05:20 01/20/19 05:20 - Laboratory Result Diagrams: 01/20/19 04:14 01/20/19 04:14 Laboratory results interpreted by me: 01/20/19 04:14 Glucose 135 H Discharge - Discharge Clinical Impression: Epigastric pain, Nausea Condition: Stable Disposition: HOME, SELF-CARE Additional Instructions: Your symptoms and examination indicate gastritis/esophagitis (inflammation of your upper gastrointestinal tract). Take Phenergan for nausea, take Carafate and Pepcid as prescribed to help treat this, you can take additional Rolaids, Tums, Maalox, etc. if needed. You can take Tylenol for pain. Avoid NSAIDs, alcohol, smoking, caffeine, spicy food. Start with clear fluids, progress to bland diet. Follow-up with primary care for additional evaluation and treatment including possible H. pylori testing. Return if you worsen including uncontrolled vomiting, vomiting blood, black stools, severe pain, fever of 100.4 or greater, or any other concerning or worsening symptoms. Prescriptions: Famotidine [Pepcid 20 mg Tablet] 20 mg PO BID #20 tablet Promethazine HCl [Phenergan 25 mg Tablet] 25 mg PO Q6H PRN #20 tablet PRN Reason: Sucralfate [Carafate 1 gm Tablet] 1 gm PO QID #20 tablet Forms: Return to Work
[2019-01-20 04:37] LABS: ABSOLUTE BASOPHILS # (AUTO) 0.1 10^3/uL (0.0-0.2); ABSOLUTE EOSINOPHILS # (AUTO) 0.3 10^3/uL (0.0-0.6); ABSOLUTE LYMPHOCYTES (AUTO) 2.7 10^3/uL (0.5-4.7); ABSOLUTE MONOCYTES (AUTO) 0.4 10^3/uL (0.1-1.4); ABSOLUTE NEUT (AUTO) 6.2 10^3/uL (1.7-8.2); BASOPHILS % (AUTO) 0.7 % (0-2); HEMATOCRIT 43.3 % (37.9-51.0); HEMOGLOBIN 14.5 g/dL (13.5-17.0); MEAN CORPUSCULAR HEMOGLOBIN 30.4 pg (27.0-33.4); MEAN CORPUSCULAR HGB CONC 33.6 g/dL (32.0-36.0); MEAN CORPUSCULAR VOLUME 91 fl (80-97); MONOCYTES % (AUTO) 4.5 % (3-13); PLATELET COUNT 327 10^3/uL (150-450); RED BLOOD COUNT 4.77 10^6/uL (4.35-5.55); RED CELL DISTRIBUTION WIDTH 13.2 % (11.5-14.0); SEGMENTED NEUTROPHILS % (AUTO) 63.8 % (42-78); TOTAL CELLS COUNTED % (AUTO) 100 %; WHITE BLOOD COUNT 9.7 10^3/uL (4.0-10.5)
[2019-01-20 04:48] LABS: ALANINE AMINOTRANSFERASE 21 U/L (21-72); ALBUMIN 4.1 g/dL (3.5-5.0); ALKALINE PHOSPHATASE 87 U/L (38-126); ANION GAP 9 (5-19); ASPARTATE AMINO TRANSFERASE 19 U/L (17-59); BILIRUBIN,DIRECT 0.3 mg/dL (0.0-0.4); BILIRUBIN,TOTAL 0.3 mg/dL (0.2-1.3); BLOOD UREA NITROGEN 15 mg/dL (7-20); CALCIUM 8.9 mg/dL (8.4-10.2); CARBON DIOXIDE 25 mmol/L (22-30); CHLORIDE 106 mmol/L (98-107); GLUCOSE 135 mg/dL (75-110); LIPASE 110.8 U/L (23-300); POTASSIUM 3.9 mmol/L (3.6-5.0); SODIUM 139.6 mmol/L (137-145); TOTAL PROTEIN 6.8 g/dL (6.3-8.2)
[2019-01-20 05:21] VITALS: BP 160/95
== END 2019-01-20 05:22 | disposition home or self-care (01) ==
LOC: ER 02:05
DX: R10.13 Epigastric pain (principal); R11.0 Nausea; Z90.49 Acquired absence of other specified parts of digestive tract; Z79.899 Other long term (current) drug therapy; F17.200 Nicotine dependence, unspecified, uncomplicated; I10 Essential (primary) hypertension
CPT/HCPCS: 99284; 36415; 83690; 85025; 80053; S0119

== ENCOUNTER 2019-01-24 02:07 | Emergency (ER) | payer BC ==
--- NOTE | 2019-01-24 03:24 | ER Document Report ---
ED General - General Chief Complaint: Other Stated Complaint: ABDOMINAL PAIN Time Seen by Provider: 01/24/19 03:23 Primary Care Provider: [facility] [Provider Group] - Follow up in 3-5 days Notes: Patient is a 33-year-old male that presents to the emergency department for chief complaint of epigastric abdominal pain. Patient was recently seen in the emergency department, for similar symptoms, was treated for gastritis and esophagitis at that time, he was improved, his symptoms were resolved, but he has not been able to fill the prescriptions because he states he does not get paid until this Tuesday, and the pain seemed to get worse today, he did have one episode of vomiting so he came back to the emergency department. Denies noting any blood in the vomit, denies any black or tarry stool. He currently rates his pain as a 4 out of 10 describes as an aching and occasionally sharp sensation in the epigastric region of his abdomen. Denies any any fevers, chills, night sweats, chest pain, shortness of breath or difficulty breathing, denies any dysuria or hematuria. Past Medical History: Hypertension Past Surgical History: Cholecystectomy Social History: Admits to smoking cigarettes, denies alcohol or drug use. Family History: Reviewed and noncontributory for presenting illness Allergies: Reviewed, see documented allergy list. REVIEW OF SYSTEMS: Other than noted above, the 12 point review of systems was reviewed with the patient and were negative, all pertinent findings are included in the HPI. PHYSICAL EXAMINATION: Vital signs reviewed, nursing noted reviewed. GENERAL: Well-appearing, well-nourished and in no acute distress. HEAD: Atraumatic, normocephalic. EYES: Eyes appear normal, extraocular movements intact, sclera anicteric, conjunctiva are normal. ENT: nares patent, oropharynx clear without exudates. Moist mucous membranes. NECK: Normal range of motion, supple without lymphadenopathy LUNGS: Breath sounds clear to auscultation bilaterally and equal. No wheezes rales or rhonchi. HEART: Regular rate and rhythm without murmurs ABDOMEN: Soft, mild epigastric tenderness to palpation, normoactive bowel sounds. No rebound, guarding, or rigidity. No masses appreciated. EXTREMITIES: Nontender, good range of motion, no pitting or edema. NEUROLOGICAL: No focal neurological deficits. Moves all extremities spontaneously Motor and sensory grossly intact on exam. PSYCH: Normal mood, normal affect. SKIN: Warm, Dry, normal turgor, no rashes or lesions noted on exposed skin TRAVEL OUTSIDE OF THE [place] IN LAST 30 DAYS: No - Related Data Allergies/Adverse Reactions: No Known Allergies Allergy (Unverified 01/08/18 09:05) Past Medical History - Social History Smoking Status: Current Every Day Smoker Chew tobacco use (# tins/day): No Smoking Education Provided: Yes - 5 minutes of smoking cessation education were given to the patient today. Frequency of alcohol use: Occasional Drug Abuse: None Family History: Reviewed & Not Pertinent Patient has suicidal ideation: No Patient has homicidal ideation: No - Past Medical History Cardiac Medical History: Reports: Hx Hypertension Renal/ Medical History: Denies: Hx Peritoneal Dialysis Past Surgical History: Reports: Hx Cholecystectomy - Immunizations Immunizations up to date: Yes Hx Diphtheria, Pertussis, Tetanus Vaccination: Yes Physical Exam - Vital signs Vitals: Temp Pulse Resp BP Pulse Ox 98.3 F 104 H 16 157/92 H 99 01/24/19 02:12 01/24/19 02:12 01/24/19 02:12 01/24/19 02:12 01/24/19 02:12 Course - Re-evaluation Re-evalutation: Patient seen and examined vital signs reviewed. Patient was evaluated and treated as appropriate for the patient's presenting symptoms and complaint, with consideration of any critical or life threatening conditions that may be associated with their obtained history and exam as noted above. Patient was treated with GI cocktail, Protonix and Carafate The patient was re-evaluated and was stable and improved Evaluation was most consistent with epigastric abdominal pain, likely GERD, encourage the patient to at a minimum warehouse picker [id number] ranitidine to take twice daily, and to get his prescriptions filled that were previously prescribed. Plan of care was discussed with the patient at this point, after careful consideration I feel that that patient can be discharged from the emergency department, the patient was educated treatments and reasons to return to the emergency department based on their presumed diagnosis as noted above, they were advised to followup with a primary care physician in 2-3 days. Patient was agreeable to plan of care. *Note is created using voice recognition software and may contain spelling, syntax or grammatical errors. - Vital Signs Vital signs: Temp Pulse Resp BP Pulse Ox 97.6 F 85 20 137/93 H 98 01/24/19 04:15 01/24/19 04:15 01/24/19 04:15 01/24/19 04:15 01/24/19 04:15 Discharge - Discharge Clinical Impression: Epigastric pain Condition: Stable Disposition: HOME, SELF-CARE Instructions: Abdominal Pain ([facility]) Additional Instructions: Please fill the prescriptions previously prescribed from her prior visit, in the meantime you can warehouse picker ranitidine, which is the generic form of Zantac, 150 mg twice daily, this can be purchased at any pharmacy, it is most affordable at [facility]. Forms: Return to Work Referrals: [facility] [Provider Group] - Follow up in 3-5 days
[2019-01-24] MEDS ORDERED: ONDANSETRON 4 MG TAB.RAPDIS PO ONE (03:32)
[2019-01-24] MEDS ORDERED: METOCLOPRAMIDE HCL ORAL SOLN 10 MG/10 ML UDCUP PO ONE (03:32)
[2019-01-24] MEDS ORDERED: LIDOCAINE 2% VISCOUS SOLN 20 ML UDCUP PO ONE (03:32)
[2019-01-24] MEDS ORDERED: MAG HYDROX/AL HYDROX/SIMETH SUSP 30 ML UDCUP PO ONE (03:32)
[2019-01-24] MEDS ORDERED: SUCRALFATE 1 GM TABLET PO ONE (03:33)
[2019-01-24] MEDS ORDERED: PANTOPRAZOLE SODIUM 40 MG TABLET.DR PO ONE (03:33)
[2019-01-24 04:17] VITALS: BP 137/93
== END 2019-01-24 04:10 | disposition home or self-care (01) ==
LOC: ER 02:07
DX: R10.13 Epigastric pain (principal); R11.10 Vomiting, unspecified; I10 Essential (primary) hypertension; F17.210 Nicotine dependence, cigarettes, uncomplicated
CPT/HCPCS: 99284; S0119; J3490 ×2

== ENCOUNTER 2020-07-24 | Emergency (ER) | payer SELFPAY ==
[2020-07-24 09:58] VITALS: BP 129/95
--- NOTE | 2020-07-24 14:26 | ER Document Report ---
Entered by JACKIE MARSHALL SCRIBE 07/24/20921 Acting as scribe for:THOMAS ANGLIN MD ED Extremity Problem, Lower - General Chief Complaint: Leg Pain Stated Complaint: LEG PAIN Time Seen by Provider: 07/24/20 09:15 Mode of Arrival: Wheelchair Information source: Patient Notes: This 35 year old male patient presents to the ED today with complaints of pain to his right groin, thigh and buttock area that started x3 days ago after he threw his right leg onto his waist-high bed. Patient states that he believes he has pulled a muscle in his groin. He reports excruciating pain when he walks or turns. 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 TRAVEL OUTSIDE OF THE [place] IN LAST 30 DAYS: No - Related Data Allergies/Adverse Reactions: No Known Allergies Allergy (Unverified 01/08/18 09:05) Past Medical History - General Information source: Patient, [facility] Records - Social History Smoking Status: Current Every Day Smoker Chew tobacco use (# tins/day): No Smoking Education Provided: No Frequency of alcohol use: None Drug Abuse: None Lives with: Family Family History: Reviewed & Not Pertinent - Past Medical History Cardiac Medical History: Reports: Hx Hypertension Past Surgical History: Reports: Hx Cholecystectomy - Immunizations Immunizations up to date: Yes Hx Diphtheria, Pertussis, Tetanus Vaccination: Yes Review of Systems - Review of Systems Constitutional: No symptoms reported EENT: No symptoms reported Cardiovascular: No symptoms reported Respiratory: No symptoms reported Gastrointestinal: No symptoms reported Genitourinary: No symptoms reported Male Genitourinary: No symptoms reported Musculoskeletal: See HPI Skin: No symptoms reported Hematologic/Lymphatic: No symptoms reported Neurological/Psychological: No symptoms reported Physical Exam - Vital signs Vitals: Temp Pulse Resp BP Pulse Ox 98.1 F 103 H 18 160/82 H 99 07/24/20 00:07 07/24/20 00:07 07/24/20 00:07 07/24/20 00:07 07/24/20 00:07 - General General appearance: Alert In distress: None - HEENT Head: Normocephalic, Atraumatic Eyes: Normal Extraocular movements intact: Yes Pupils: PERRL Neck: Normal, Supple - Respiratory Respiratory status: No respiratory distress Chest status: Nontender Breath sounds: Normal Chest palpation: Normal - Cardiovascular Rhythm: Regular Heart sounds: Normal auscultation Murmur: No - Abdominal Inspection: Obese Distension: No distension Bowel sounds: Normal Tenderness: Nontender - Abdomen soft Organomegaly: No organomegaly - Back Back: Normal, Nontender - Extremities Notes: Right groin is tender to palpation. When the patient adducts his right leg, digging his foot into the tile and tries to pull, it causes excruciating pain. Patient states that he gets the same pain when he is lying down and puts his legs together. - Neurological Neuro grossly intact: Yes Orientation: AAOx4 [place] Coma Scale Eye Opening: Spontaneous [place] Coma Scale Verbal: Oriented [place] Coma Scale Motor: Obeys Commands Jean-Claude Coma Scale Total: 15 - Psychological Associated symptoms: Normal affect, Normal mood - Skin Skin Temperature: Warm Skin Moisture: Dry Skin Color: Normal Course - Vital Signs Vital signs: Temp Pulse Resp BP Pulse Ox 97.8 F 95 16 129/95 H 97 07/24/20 09:57 07/24/20 09:57 07/24/20 09:57 07/24/20 09:57 07/24/20 09:57 - Laboratory Results Critical Laboratory Results Reviewed: No Critical Results - Radiology Results Critical Radiology Results Reviewed: No Critical Results Discharge - Discharge Clinical Impression: Strain of right groin Condition: Stable Disposition: HOME, SELF-CARE Additional Instructions: Inguinal Strain(Groin Strain): You have an inguinal strain, also known as a pulled groin. This injury causes pain where the lower abdominal wall meets the upper leg. The strain can affect several different muscles and tendons. When it occurs during running, the injury usually affects the tendon or upper muscle fibers of the thigh muscles. With weight lifting, it's the lower fibers of the abdominal wall muscles that are most often strained. Running, lifting, squatting, or even walking can cause pain. A strain can take a few weeks to heal. Apply ice packs during the first couple of days following the injury. Antiinflammatory pain medication can help. Avoid lifting, running, jumping, and other activities that provoke pain. No hernia was found. But sometimes a hernia can begin with the same symptoms as a strain of the groin. If you find a lump or bulge in the groin, pain or swelling in the testicle, abdominal cramping, or vomiting, you should return for re-examination. Take ibuprofen 600 mg every 8 hours for the next 2 weeks or more. Take the pain medication as prescribed if needed. Limit activity, try to find ways to get in and out of bed and in and out of chairs without using the groin muscles on the right side. Follow-up with a local medical doctor if not improving. RETURN TO THE EMERGENCY ROOM IF ANY NEW OR WORSENING SYMPTOMS. Prescriptions: Oxycodone HCl/Acetaminophen [Percocet 5-325 mg Tablet] 1 tab PO ASDIR PRN #15 tablet PRN Reason: Forms: Return to Work I personally performed the services described in the documentation, reviewed and edited the documentation which was dictated to the scribe in my presence, and it accurately records my words and actions.
== END 2020-07-24 09:57 | disposition home or self-care (01) ==
LOC: ER
DX: R10.30 Lower abdominal pain, unspecified (principal); M79.651 Pain in right thigh; M25.551 Pain in right hip; F17.200 Nicotine dependence, unspecified, uncomplicated; I10 Essential (primary) hypertension
CPT/HCPCS: 99284

== ENCOUNTER 2020-08-01 16:04 | Emergency (ER) | payer SELFPAY ==
--- NOTE | 2020-08-01 17:17 | ER Document Report ---
ED Medical Screen (RME) - General Chief Complaint: Groin Pain Stated Complaint: GROIN PAIN Time Seen by Provider: 08/01/20 17:09 Mode of Arrival: Ambulatory Information source: Patient Notes: HPI; 35-year-old male presents to the emergency room with persistent right groin pain for the past week. States he was seen in the emergency by Dr. Carlisle on July 24, who diagnosed him with a groin strain discharged him home with Percocet and was told to stay out of work for a week. Patient states he got up this morning to go back to work and the pain has gotten worse. He denies any nausea, vomiting, no trauma no injury. No outpatient follow-up. Denies any nausea, vomiting, no urinary symptoms. No penile discharge. PE: Alert and oriented x3. Lungs: Clear to auscultation without rales, rhonchi, wheezes. Heart: Regular rate rhythm without murmurs, rubs, gallops. I have greeted and performed a rapid initial assessment of this patient. A comprehensive ED assessment and evaluation of the patient, analysis of test results and completion of the medical decision making process will be conducted by additional ED providers. I have specifically instructed the patient or family members with the patient to immediately return to any nursing staff should anything change in the patient's condition or with their chief complaint. TRAVEL OUTSIDE OF THE [place] IN LAST 30 DAYS: No - Related Data Allergies/Adverse Reactions: No Known Allergies Allergy (Unverified 01/08/18 09:05) Past Medical History - Social History Chew tobacco use (# tins/day): No Frequency of alcohol use: None Drug Abuse: None Family history: Reviewed & Not Pertinent - Past Medical History Cardiac Medical History: Reports: Hx Hypertension Renal/ Medical History: Denies: Hx Peritoneal Dialysis Past Surgical History: Reports: Hx Cholecystectomy - Immunizations Immunizations up to date: Yes Hx Diphtheria, Pertussis, Tetanus Vaccination: Yes Physical Exam - Vital signs Vitals: Temp Pulse Resp BP Pulse Ox 98.5 F 97 20 147/91 H 95 08/01/20 16:10 08/01/20 16:10 08/01/20 16:10 08/01/20 16:10 08/01/20 16:10 Course - Vital Signs Vital signs: Temp Pulse Resp BP Pulse Ox 98.5 F 97 20 147/91 H 95 08/01/20 16:10 08/01/20 16:10 08/01/20 16:10 08/01/20 16:10 08/01/20 16:10
[2020-08-01 17:51] LABS: ABSOLUTE BASOPHILS # (AUTO) 0.1 10^3/uL (0.0-0.2); ABSOLUTE EOSINOPHILS # (AUTO) 0.5 10^3/uL (0.0-0.6); ABSOLUTE LYMPHOCYTES (AUTO) 2.6 10^3/uL (0.5-4.7); ABSOLUTE MONOCYTES (AUTO) 0.7 10^3/uL (0.1-1.4); ABSOLUTE NEUT (AUTO) 8.7 10^3/uL (1.7-8.2); BASOPHILS % (AUTO) 0.9 % (0-2); EOSINOPHILS % (AUTO) 4.1 % (0-6); HEMATOCRIT 42.1 % (37.9-51.0); HEMOGLOBIN 14.3 g/dL (13.5-17.0); LYMPHOCYTES % (AUTO) 20.9 % (13-45); MEAN CORPUSCULAR HEMOGLOBIN 29.8 pg (27.0-33.4); MEAN CORPUSCULAR HGB CONC 33.9 g/dL (32.0-36.0); MEAN CORPUSCULAR VOLUME 88 fl (80-97); MONOCYTES % (AUTO) 5.8 % (3-13); PLATELET COUNT 375 10^3/uL (150-450); RED BLOOD COUNT 4.79 10^6/uL (4.35-5.55); RED CELL DISTRIBUTION WIDTH 13.4 % (11.5-14.0); SEGMENTED NEUTROPHILS % (AUTO) 68.3 % (42-78); TOTAL CELLS COUNTED % (AUTO) 100 %; WHITE BLOOD COUNT 12.7 10^3/uL (4.0-10.5)
[2020-08-01 17:55] LABS: APPEARANCE,URINE CLEAR; BILIRUBIN,URINE NEGATIVE (NEGATIVE); COLOR,URINE YELLOW; GLUCOSE, URINE NEGATIVE (NEGATIVE); KETONES,URINE NEGATIVE (NEGATIVE); LEUKOCYTE ESTERASE,URINE NEGATIVE (NEGATIVE); NITRITE,URINE NEGATIVE (NEGATIVE); PROTEIN,URINE 30 mg/dL (NEGATIVE); URINE SPECIFIC GRAVITY 1.028
[2020-08-01 18:10] LABS: ALKALINE PHOSPHATASE 91 U/L (38-126); ANION GAP 6 (5-19); ASPARTATE AMINO TRANSFERASE 29 U/L (17-59); BILIRUBIN,DIRECT 0.2 mg/dL (0.0-0.4); BILIRUBIN,TOTAL 0.3 mg/dL (0.2-1.3); BLOOD UREA NITROGEN 9 mg/dL (7-20); CALCIUM 9.2 mg/dL (8.4-10.2); CARBON DIOXIDE 30 mmol/L (22-30); CHLORIDE 104 mmol/L (98-107); GLUCOSE 97 mg/dL (75-110); POTASSIUM 3.8 mmol/L (3.6-5.0); TOTAL PROTEIN 6.9 g/dL (6.3-8.2)
--- NOTE | 2020-08-01 21:56 | RADIOLOGY REPORT (SQ) ---
EXAM DESCRIPTION: Site: CT ABD/PELVIS WITH IV ONLY RP: CT ABDOMEN PELVIS WITH IV CONTRAST CLINICAL HISTORY: 35 years Male; right groin pain; TECHNIQUE: CT of the abdomen and pelvis using intravenous contrast. All CT scans at this facility use dose modulation, iterative reconstruction, and/or weight based dosing when appropriate to reduce radiation dose to as low as reasonably achievable. COMPARISON: None. FINDINGS: Abdomen: Stomach: No significant distention or surrounding edema. Liver: Diffuse mild hypodensity. No focal lesion. No ductal distention. Gallbladder: Surgically absent Pancreas:Within normal limits Spleen:Within normal limits Right kidney:No hydronephrosis. No focal lesion. Left kidney:No hydronephrosis. No focal lesion. Adrenal glands:Within normal limits Vascular structures:Within normal limits Pelvis: Small bowel:No significant distention. Appendix:Within normal limits Colon:No distention or acute pericolonic edema. No free intraperitoneal fluid or air. Bones: No acute bone findings. Bladder: Unremarkable. No pelvic mass or adenopathy. IMPRESSION: 1. No acute findings 2. Previous cholecystectomy 3. Mild diffuse hepatic steatosis.
--- NOTE | 2020-08-01 22:54 | ER Document Report ---
ED Extremity Problem, Lower - General Chief Complaint: Groin Pain Stated Complaint: GROIN PAIN Time Seen by Provider: 08/01/20 17:09 Primary Care Provider: [facility] [Provider [facility]] - Follow up as needed [facility] [Provider Group] - Follow up as needed [facility] [Provider Group] - Follow up as needed [facility] [Provider Group] - Follow up as needed [facility] [Provider Group] - Follow up as needed Mode of Arrival: Ambulatory Information source: Patient Notes: 35-year-old male presented to ED for complaint of right groin pain. He states he saw Dr. Skelton about on Natalia. He diagnosed him with a groin strain and discharged him with a prescription for Percocet Wanted to give him of several weeks but he told me he could only do 1 week at a time. She states he got up and tried to go to work in the morning and the pain was so bad that he had to go back home. He denies any nausea vomiting diarrhea or any new injuries. Patient states the main reason he came to the emergency room was a work note and recommendations for follow-up because he cannot be off work for ever without some type of therapy. Constitutional: Negative for fever. HENT: Negative for sore throat. Eyes: Negative for visual changes. Cardiovascular: Negative for chest pain. Respiratory: Negative for shortness of breath. Gastrointestinal: Negative for abdominal pain, vomiting or diarrhea. Genitourinary: Negative for dysuria. Musculoskeletal: Pain to the right groin area increased with activity movement or any strain on the right leg. He states when he externally rotates the hip it causes strain on the internal thigh Skin: Negative for rash. Neurological: Negative for headaches, weakness or numbness. 10 point ROS negative except as marked above and in HPI. VITAL SIGNS: Within normal limits. GENERAL: No acute distress, non-toxic appearance. HEAD: Normal with no signs of head trauma. EYES: PERRLA, EOMI, conjunctiva normal, no discharge. EARS: Hearing grossly intact. NOSE: Normal. THROAT: Oropharynx is normal. NECK: Normal range of motion, no tenderness, supple, no lymphadenopathy, No adenopathy, no JVD. CHEST: Clear breath sounds bilaterally. No wheezes, rales, or rhonchi. CARDIAC: Regular rate and rhythm. S1 and S2, without murmurs, gallops, or rubs. VASCULAR: No Edema. Peripheral pulses normal and equal in all extremities. ABDOMEN: Normal and soft with no tenderness, no masses or pulsatile masses. GASTROINTESTINAL: Bowel sounds normal GENITOURINARY: Normal, No tenderness LYMPATHTIC: No lymphadenopathy noted. MUSCULOSKELETAL: Limitation to the range of motion to the right thigh due to pain in the right groin area from a groin strain. NEUROLOGICAL: Alert and oriented x 3. No focal sensory or strength deficits. Speech normal. Follows commands appropriately. PSYCHIATRIC: Normal Affect, judgement and mood. SKIN: Normal appearance with no rashes or lesions. TRAVEL OUTSIDE OF THE [place] IN LAST 30 DAYS: No - HPI Patient complains to provider of: Injury, Pain Location: Thigh - Right groin/thigh Occurred: Last week Where: Home Onset/Duration: Persistent Quality of pain: Burning, Sharp Severity: Moderate Pain Level: 4 Recent injury: Yes Associated symptoms: Painful ambulation Exacerbated by: Movement, Walking Relieved by: Nothing - Related Data Allergies/Adverse Reactions: No Known Allergies Allergy (Unverified 01/08/18 09:05) Past Medical History - General Information source: Patient - Social History Smoking Status: Current Every Day Smoker Cigarette use (# per day): Yes Chew tobacco use (# tins/day): No Frequency of alcohol use: Rare Drug Abuse: Marijuana Occupation: [employer] Lives with: Family Family History: Reviewed & Not Pertinent Patient has suicidal ideation: No Patient has homicidal ideation: No - Past Medical History Cardiac Medical History: Reports: Hx Hypertension Pulmonary Medical History: Reports: None EENT Medical History: Reports: None Neurological Medical History: Reports: None Endocrine Medical History: Reports: None Renal/ Medical History: Reports: None Malignancy Medical History: Reports None GI Medical History: Reports: None Musculoskeletal Medical History: Reports Hx Musculoskeletal Trauma Skin Medical History: Reports None Psychiatric Medical History: Reports: None Traumatic Medical History: Reports: None Infectious Medical History: Reports: None Past Surgical History: Reports: Hx Cholecystectomy - Immunizations Immunizations up to date: Yes Hx Diphtheria, Pertussis, Tetanus Vaccination: Yes Physical Exam - Vital signs Vitals: Temp Pulse Resp BP Pulse Ox 98.5 F 97 20 147/91 H 95 08/01/20 16:10 08/01/20 16:10 08/01/20 16:10 08/01/20 16:10 08/01/20 16:10 Course - Re-evaluation Re-evalutation: 08/02/20 08:[address] with patient written report of labs and CT given to pete willoughby. Patient was given a work note to be off work and was given a list of primary providers and orthopedic to follow-up with so that he could recover from this strain as soon as possible. Patient verbalized understanding and agreement with this treatment plan patient was discharged home. - Vital Signs Vital signs: Temp Pulse Resp BP Pulse Ox 98.9 F 79 18 152/111 H 100 08/01/20 23:14 08/01/20 23:14 08/01/20 23:14 08/01/20 23:14 08/01/20 23:14 - Laboratory Results Result Diagrams: 08/01/20 17:34 08/01/20 17:34 Laboratory Results Interpreted: 08/01/20 08/01/20 17:34 17:34 WBC 12.7 H Absolute Neuts (auto) 8.7 H Urine Protein 30 H Urine Urobilinogen 2.0 H Critical Laboratory Results Reviewed: No Critical Results - Radiology Results Critical Radiology Results Reviewed: No Critical Results Discharge - Discharge Clinical Impression: Morbid obesity with BMI of 45.0-49.9, adult Strain of right inguinal muscle Qualifiers: Encounter type: subsequent encounter Qualified Code(s): S39.013D - Strain of muscle, fascia and tendon of pelvis, subsequent encounter High blood pressure Qualifiers: Hypertension type: unspecified Qualified Code(s): I10 - Essential (primary) hypertension Condition: Stable Disposition: HOME, SELF-CARE Additional Instructions: Inguinal Strain(Groin Strain): You have an inguinal strain, also known as a pulled groin. This injury causes pain where the lower abdominal wall meets the upper leg. The strain can affect several different muscles and tendons. When it occurs during running, the injury usually affects the tendon or upper muscle fibers of the thigh muscles. With weight lifting, it's the lower fibers of the abdominal wall muscles that are most often strained. Running, lifting, squatting, or even walking can cause pain. A strain can take a few weeks to heal. Apply ice packs during the first couple of days following the injury. Antiinflammatory pain medication can help. Avoid lifting, running, jumping, and other activities that provoke pain. No hernia was found. But sometimes a hernia can begin with the same symptoms as a strain of the groin. If you find a lump or bulge in the groin, pain or swelling in the testicle, abdominal cramping, or vomiting, you should return for re-examination. Continue using your ibuprofen as instructed by Dr. Skelton Ibuprofen Ibuprofen is an excellent, safe drug for pain control. In addition, it has potent antiinflammatory effects which are beneficial, especially in the treatment of injuries, arthritis, or tendonitis. It's best to take ibuprofen with food. Persons with ulcer disease or allergy to aspirin should notify their physician of this before taking ibuprofen. Take the medication exactly as prescribed. Don't take additional doses unless instructed to do so by your doctor. If you develop wheezing, shortness of breath, hives, faintness, stomach pain, vomiting, or dark black stools, return for re-evaluation at once. Ice Packs Apply ice packs frequently against the painful area. Many different schedules are recommended, such as "20 minutes on, 20 minutes off" or "one hour ice, two hours rest." If you need to work, you may need to go longer between ice treatments. You should plan to have the area ice packed AT LEAST one fourth of the time. The ice should be applied over the wrap, tape, or splint, or over a layer of cloth -- not directly against the skin. Some ice bags have a built-in cloth and can be put directly on the skin. Warm Packs After approximately two days, apply gentle heat (such as a heating pad or hot water bottle) for about 20 to 30 minutes about every two hours -- at least four times daily. Warmth and elevation will help you make a more rapid recovery, and will ease the pain considerably. Do not use HOT heat, and never apply heat for longer than 30 minutes. The continuous heat can invisibly damage skin and muscles -- even when no burn is seen on the surface. Damaged muscles can make you MORE sore. FOLLOW-UP CARE: If you have been referred to a physician for follow-up care, call the physicians office for an appointment as you were instructed or within the next two days. If you experience worsening or a significant change in your symptoms, notify the physician immediately or return to the Emergency Department at any time for re-evaluation. Forms: Elevated Blood Pressure, Smoking Cessation Education, Return to Work Referrals: [facility] [Provider Group] - Follow up as needed [facility] [Provider Group] - Follow up as needed [facility] [Provider Group] - Follow up as needed [facility] [Provider Group] - Follow up as needed [facility] [Provider Group] - Follow up as needed
[2020-08-01] MEDS ORDERED: KETOROLAC TROMETHAMINE 60 MG/2 ML SDV IM ONE (23:00)
[2020-08-01 23:16] VITALS: BP 152/111
== END 2020-08-01 23:16 | disposition home or self-care (01) ==
LOC: ER 16:04
DX: S39.013D Strain of muscle, fascia and tendon of pelvis, subsequent encounter (principal); X58.XXXD Exposure to other specified factors, subsequent encounter; E66.01 Morbid (severe) obesity due to excess calories; Z68.42 Body mass index [BMI] 45.0-49.9, adult; R10.30 Lower abdominal pain, unspecified; F17.210 Nicotine dependence, cigarettes, uncomplicated; F12.10 Cannabis abuse, uncomplicated; I10 Essential (primary) hypertension
CPT/HCPCS: 99285; 96372; 36415; 85025; 80053; 81001; 74177; J1885